=== PATIENT | female | born 1965 | race Two or more races ===

== ENCOUNTER 2016-12-07 07:35 | Day surgery (SDC) | payer OTHER ==
[2016-11-22 16:51] VITALS: BMI 31.1
[2016-12-07] MEDS ORDERED: PROPOFOL 20 ML ONE (08:43)
[2016-12-07] MEDS ORDERED: MIDAZOLAM HCL 2 MG/2 ML SINGLE DOSE VIAL ONE (08:44)
[2016-12-07] MEDS ORDERED: SODIUM CHLORIDE 0.9% P/F 10 ML VIAL IJ ONE (09:33)
[2016-12-07] MEDS ORDERED: ceFAZolin SODIUM 1 GM VIAL IVPB ONE (09:40)
[2016-12-07] MEDS ORDERED: ONABOTULINUMTOXINA 200 UNIT/VIAL VIAL IM ONE (09:50)
[2016-12-07] MEDS ORDERED: BOTULINUM TOXIN A 100 UNITS VIAL NR ONE (09:50)
[2016-12-07] MEDS ORDERED: oxyCODONE HCL 5 MG TABLET PO PRN (10:08)
[2016-12-07] MEDS ORDERED: ONDANSETRON 4 MG/2 ML VIAL IVPUSH PRN (10:08)
[2016-12-07] MEDS ORDERED: KETOROLAC TROMETHAMINE 30 MG/1 ML VIAL IVPUSH ONE (10:08)
--- NOTE | 2016-12-07 10:09 | OP ---
Operative Note - Note: Findings: pt withoab/tejas under ga pt prepped and draped in usual manner ext vag mucosa reveled moist mucosa and grade 2 hydrocele cysto reveleaded sq metaplasia of trigone no lesion no calculi seen botox 100 u vial/20 cc ns was diluted and then with 18.5 g 14 inc needle a cm above trigoner from right toleft 4 rows of 1 cc injected and then from right to left a cm abobve another 5 rows were inj with 1 cc and repeat until a tota;l of 20 inj given briceno removed, pt to recovery stable condition may d/c when alert
--- NOTE | 2016-12-07 10:10 | PN ---
Progress Note (short form) - Note Progress Note: pt post op stable may d/c when alert rx given for antibacterial as well as pain control pt to follow up in office w/i in a week oob inc justin d/c when alert
[2016-12-07] MEDS ORDERED: LACTATED RINGERS SOLUTION 1,000 ML IV SCH (10:15)
[2016-12-07 10:41] VITALS: TEMP 98
[2016-12-07 12:57] VITALS: BP 113/49; PULSE 84
--- NOTE | 2016-12-07 18:56 | HP ---
DATE OF ADMISSION: 12/07/2016 HISTORY OF PRESENT ILLNESS: The patient is a 51-year-old female with a history of severe overactive bladder with no improvement on multiple anticholinergics as well as alpha-3 receptor agonists. The patient also had no help with Kegel exercises as well as biofeedback. She also has some stress urinary incontinence. She states she wakes 8 to 9 times at night, uses 4-6 pads a day. PAST MEDICAL HISTORY: The patient does have dyslipidemia for which she takes Lipitor. PAST SURGICAL HISTORY: She has undergone a hysterectomy, and appendectomy and a cholecystectomy. MOBILE PARAMEDICAL EXAMINER: She is G-3, P-3, all via C section. SOCIAL HISTORY: She denies any ethanolism or time of admission use. ALLERGIES: She is allergic to LEVAQUIN. PHYSICAL EXAMINATION GENERAL: A well-developed adult female. NECK: Supple and nontender. No JVD was noted. No nodes were palpable. CHEST: Clear to auscultation and percussion. ABDOMEN: Globus and nontender. There was no CVA tenderness. No masses were palpated. No was noted. No suprapubic tenderness was noted. PELVIC: Examination revealed a grade 2 cystocele with a positive Dharmesh test. Meatus is adequate. LABORATORY DATA: BUN 12, creatinine 0.88. She had an overactive bladder found on urodynamic evaluation. The patient was given all options of conservative medical care but states that nothing has helped. She is willing to try the intravesical Botox injections. This was explained fully to the patient and she agrees. IMPRESSION: Overactive bladder unresponsive to medications. PLAN: Cystourethroscopy with Botox injections. Rk [id number] cc: Maura Simons MD
--- NOTE | 2016-12-08 11:22 | OP ---
DATE OF OPERATION: 12/07/2016 PREOPERATIVE DIAGNOSIS: Overactive bladder, external sphincter deficiency. POSTOPERATIVE DIAGNOSIS: Overactive bladder, external sphincter deficiency. OPERATIVE PROCEDURE: Cystourethroscopy and intravesical injection of Botox solution. DESCRIPTION OF PROCEDURE: Under general anesthesia, the patient is prepped and draped in the usual sterile manner. She was placed in the dorsal lithotomy position. Inspection of the external genitalia revealed a grade 2 cystocele. Vaginal mucosa was somewhat atrophic. Meatus appeared to be adequate. A 30-degree continuous flow scope was introduced under direct vision. Bladder was entered. Urine was collected for cytology and culture and sensitivity. Inspection of the bladder revealed squamous metaplasia of the trigone. Ureteral orifices were within normal limits with efflux of clear urine bilaterally. Dome and lateral leal were normal. No lesions or calculi were seen. Using the needle, an 18.5-gauge and a 14.6-inch lens, Botox solution 100 units was mixed with 20 mL of normal saline. A row of five 1-mL injections was commenced above the interureteric ridge. This was carried across from the right side of the bladder to the left. A second row was performed 2 cm above that, a third row 2 cm above that, and a fourth row 2 cm above that. In total, the patient received 20 injections of the solution of 100 units of Botox and 20 mL of normal saline. No active bleeding was noted. Again, ureteral orifices revealed efflux of clear urine. The bladder was emptied. The scope was removed. The patient tolerated the procedure well. She returned to the recovery room in good condition. Rk [id number]
--- NOTE | 2016-12-10 15:47 | PATH ---
Cytology Non-Gynecological Report Patient Name: SERAFIN CID [facility]. Rec. #: [id number] /Age/Gender: 1965 (Age: 51) / F Account: [id number] Location: [facility] SURGICAL Taken: 12/07/2016 Received: 12/07/2016 Reported: 12/10/2016 Physicians: Gómez Flores M.D. Specimen(s) Received URINE VOIDED Clinical History Not given Final Diagnosis URINE FOR CYTOLOGY: SATISFACTORY FOR EVALUATION. CLUSTERS OF REACTIVE APPEARING UROTHELIAL CELLS PRESENT. REACTIVE SQUAMOUS CELLS. Comment: Clusters of urothelial cells may be seen as a result of inflammation, instrumentation, stones, or low-grade urothelial carcinoma. The clusters appear to be comprised of reactive looking cells. Clinical and cystoscopic correlations are suggested. Electronically Signed Barrington Weeks M.D. Gross Description Received is 20cc of yellow fluid fresh. One cytofunnel slide and one cell block are made.
== END 2016-12-07 12:57 | disposition home or self-care (01) ==
LOC: JASU-SURG 07:35
PROVIDERS: ATTEND Urology
PROC: 3E0K8GC Introduction of Other Therapeutic Substance into Genitourinary Tract, Via Natural or Artificial Opening Endoscopic (ICD-10-PCS; principal; 2016-12-07 09:00)
DX: N32.81 Overactive bladder (principal); E78.5 Hyperlipidemia, unspecified
CPT/HCPCS: 52287; J0585; 87086; 88108; 88305-TC; 94760

== ENCOUNTER 2017-05-10 03:04 | Emergency (ER) | payer OTHER ==
--- NOTE | 2017-05-10 03:15 | PDOC ---
History of Present Illness - General Stated Complaint: URINARY PROBLEM Time Seen by Provider: 05/10/17 03:14 - History of Present Illness Initial Comments: 05/10/17 04:50 52 y/o female with PMH of cystocele, who presents to the emergency department today complaining of urinary frequency. Patient states that her symptoms started 3 days ago. She states that she is going to the bathroom between 10 and 20 times a day. She has small amounts of output every time she uses the bathroom. Admits to dysuria and urgency. Denies hematuria. Admits to some generalized abdominal pain. Denies fevers, chills, back pain, chest pain, shortness of breath, nausea, vomiting and diarrhea. Past History - Travel Traveled outside of the country in the last 30 days: No Close contact w/someone who was outside of country & ill: No - Past Medical History Allergies/Adverse Reactions: Allergies Allergy/AdvReac Type Severity Reaction Status Date / Time azithromycin [From Zithromax] Allergy Severe Verified 05/10/17 03:55 levofloxacin [From Levaquin] Allergy Severe Verified 05/10/17 03:55 Home Medications: Ambulatory Orders Cephalexin [Keflex] 500 mg PO TID #0 capsule 12/07/16 Oxycodone HCl/Acetaminophen [Percocet 5-325 mg Tablet] 1 tab PO Q4H #20 tablet MDD 6 12/07/16 Sulfamethoxazole/Trimethoprim [Bactrim Ds -] 1 tab PO BID #13 tablet 05/10/17 Anemia: Yes (H/O) Asthma: No Cancer: No Cardiac Disorders: No CVA: No COPD: No CHF: No Dementia: No Diabetes: No GI Disorders: Yes (GERD) Disorders: No HTN: No Hypercholesterolemia: Yes Liver Disease: No (HEPATIC CYST, PANCREATIC CYST) Seizures: No Thyroid Disease: No - Surgical History Abdominal Surgery: Yes Appendectomy: Yes Cardiac Surgery: No Cholecystectomy: Yes Lung Surgery: No Neurologic Surgery: No Orthopedic Surgery: No - Family Disease History Family Disease History: Other: Father (CVA at 60) - Immunization History Immunization Up to Date: Yes - Psycho/Social/Smoking Cessation Hx Anxiety: No Suicidal Ideation: No Smoking History: Never smoked Have you smoked in the past 12 months: No Number of Cigarettes Smoked Daily: 0 Cigars Per Day: 0 Hx Alcohol Use: No Drug/Substance Use Hx: No Substance Use Type: None Hx Substance Use Treatment: No Review of Systems - Review of Systems Able to Perform ROS?: Yes Comments:: 05/10/17 06:52 CONSTITUTIONAL: Absent: fever, chills, diaphoresis, generalized weakness, malaise, loss of appetite HEENT: Absent: rhinorrhea, nasal congestion, throat pain, throat swelling, difficulty swallowing, mouth swelling, ear pain, eye pain, visual Changes CARDIOVASCULAR: Absent: chest pain, loss of consciousness, palpitations, irregular heart rate, peripheral edema RESPIRATORY: Absent: cough, shortness of breath, dyspnea with exertion, orthopnea, wheezing, stridor, hemoptysis GASTROINTESTINAL: Absent: abdominal pain, abdominal distension, nausea, vomiting, diarrhea, constipation, melena, hematochezia GENITOURINARY: Present: dysuria, frequency, urgency, Absent:hesitancy, hematuria, flank pain, genital pain MUSCULOSKELETAL: Absent: myalgia, arthralgia, joint swelling SKIN: Absent: rash, itching, pallor HEMATOLOGIC/IMMUNOLOGIC: Absent: easy bleeding, easy bruising, lymphadenopathy, frequent infections ENDOCRINE: Absent: unexplained weight gain, unexplained weight loss, heat intolerance, cold intolerance NEUROLOGIC: Absent: headache, focal weakness or paresthesias, dizziness, unsteady gait, seizure, mental status changes, bladder or bowel incontinence PSYCHIATRIC: Absent: anxiety, depression, suicidal or homicidal ideation, hallucinations. Is the patient limited Italian proficient: No *Physical Exam - Physical Exam Comments: 05/10/17 04:52 GENERAL: Well developed, well nourished. Awake and alert. No acute distress. HEENT: Normocephalic, atraumatic. PERRLA, EOMI. No conjunctival pallor. Sclera are non- icteric. Moist mucous membranes. Oropharynx is clear. NECK: Supple. Full ROM. No JVD. Carotid pulses 2+ and symmetric, without bruits. No thyromegaly. No lymphadenopathy. CARDIOVASCULAR: Regular rate and rhythm. No murmurs, rubs, or gallops. Distal pulses are 2+ and symmetric. PULMONARY: No evidence of respiratory distress. Lungs clear to auscultation bilaterally. No wheezing, rales or rhonchi. ABDOMINAL: Mild diffuse tenderness, worse over bladder. Soft. Non-distended. No rebound or guarding. No organomegaly. Normoactive bowel sounds. MUSCULOSKELETAL Normal range of motion at all joints. No bony deformities or tenderness. No CVA tenderness. EXTREMITIES: No cyanosis. No clubbing. No edema. No calf tenderness. SKIN: Warm and dry. Normal capillary refill. No rashes. No jaundice. NEUROLOGICAL: Alert, awake, appropriate. Cranial nerves 2-12 intact. No deficits to light touch and temperature in face, upper extremities and lower extremities. No motor deficits in the in face, upper extremities and lower extremities. Normoreflexic in the upper and lower extremities. Normal speech. Toes are down- going bilaterally. Gait is normal without ataxia. PSYCHIATRIC: Cooperative. Good eye contact. Appropriate mood and affect. ED Treatment Course - LABORATORY CBC & Chemistry Diagram: 05/10/17 04:00 05/10/17 04:00 Medical Decision Making - Medical Decision Making 05/10/17 04:53 Past medical history of cystocele, who presents to the emergency department today complaining of urinary frequency. Based on signs and symptoms patient most likely has a UTI. There is no flank pain and vital signs are stable, patient is afebrile. 1.UA, UC, CBC, CMP 2.ibuprofen 3.reevaluate 05/10/17 05:01 UA positive for Leuks, protein, over 300 WBC's. Will treat for UTI at this time. First dose bactum DS now. Prescription sent to pharmacy. Patient to f/u with her PCP this week. Pt. understands all discharge instructions and all questions were answered at this time. *DC/Admit/Observation/Transfer Diagnosis at time of Disposition: UTI (urinary tract infection) Qualifiers: Urinary tract infection type: acute cystitis Hematuria presence: without hematuria Qualified Code(s): N30.00 - Acute cystitis without hematuria - Discharge Dispostion Disposition: HOME Condition at time of disposition: Improved Admit: No - Prescriptions Prescriptions: Sulfamethoxazole/Trimethoprim [Bactrim Ds -] 1 tab PO BID #13 tablet - Referrals Referrals: Oscar Mack MD [Primary Care Provider] - - Patient Instructions Printed Discharge Instructions: DI for Urinary Tract Infection (UTI) Additional Instructions: You have a urinary tract infection. You were prescribed antibiotics. Take the full prescription even if you feel better. Drink plenty of fluids as this will help to flush out the infection. You may take Tylenol or Motrin as needed for pain. Follow up with your primary care doctor later today. Return to the ED if you have worsening pain, fevers, chills, nausea, back pain, or any changes in your symptoms. Usted tiene jay infeccin del tracto urinario. Le recetaron antibiticos. [place] la receta completa incluso si se siente mejor. Domi muchos lquidos ya que esto ayudar a eliminar la infeccin. Usted puede umm Tylenol o Motrin segn sea necesario para el dolor. Seguir con loo mdico de atencin primaria ms brittney gould. Regrese a la [place] si tiene empeoramiento de dolor, fiebre, escalofros, nuseas, dolor de espalda o cualquier cambio en brigette sntomas. Print Language: JAMAICAN
[2017-05-10 03:48] VITALS: BP 114/62; PULSE 86; TEMP 98.3; BMI 31.1
[2017-05-10 04:09] LABS: URINE APPEARANCE SLCLOUDY; URINE BILIRUBIN NEGATIVE (NEGATIVE); URINE BLOOD 2+ (NEGATIVE); URINE COLOR STRAW; URINE GLUCOSE (UA) NEGATIVE (NEGATIVE); URINE KETONE NEGATIVE (NEGATIVE); URINE NITRITE NEGATIVE (NEGATIVE); URINE PROTEIN NEGATIVE (NEGATIVE); URINE UROBILINOGEN NEGATIVE mg/dL (0.2-1.0)
[2017-05-10 04:11] LABS: BASOPHIL 0.5 % (0-2.0); EOSINOPHIL 0.7 % (0-4.5); MCH 30.2 pg (25.7-33.7); MCHC 34.1 g/dl (32.0-36.0); MEAN CELL VOLUME 88.5 fl (80-96); NEUTROPHILS 72.2 % (42.8-82.8); PLATELET COUNT 215 K/MM3 (134-434); RDW 13.1 % (11.6-15.6); WHITE BLOOD COUNT 8.6 K/mm3 (4.0-10.0)
[2017-05-10] MEDS ORDERED: IBUPROFEN 600 MG TABLET (FP) PO ONE ×2 (04:11→04:31)
[2017-05-10 04:13] LABS: URINE LEUK ESTERASE 3+ (NEGATIVE)
[2017-05-10 04:15] LABS: URINE BACTERIA RARE /hpf (NONE SEEN); URINE MUCUS RARE; URINE RBC 2 /hpf (0-3); URINE WBC 318 /hpf (3-5)
[2017-05-10 04:49] LABS: ALBUMIN 3.8 g/dl (3.4-5.0); ANION GAP 11 (8-16); BILIRUBIN,TOTAL 0.5 mg/dL (0.2-1.0); CALCIUM 8.8 mg/dL (8.5-10.1); CO2 27 mmol/L (21-32); CREATININE 0.8 mg/dL (0.55-1.02); GLUCOSE,RANDOM 104 mg/dL (74-106); SGOT/AST 27 U/L (15-37); SGPT/ALT 47 U/L (12-78); TOT PROT 6.9 g/dl (6.4-8.2)
[2017-05-10 04:50] LABS: ALK PHOS 108 U/L (45-117)
--- NOTE | 2017-05-10 04:52 | PDOC ---
*Physical Exam - Vital Signs Last Vital Signs Temp Pulse Resp BP Pulse Ox 98.3 F 86 20 114/62 98 05/10/17 03:46 05/10/17 03:46 05/10/17 03:46 05/10/17 03:46 05/10/17 03:46 ED Treatment Course - LABORATORY CBC & Chemistry Diagram: 05/10/17 04:00 05/10/17 04:00 - ADDITIONAL ORDERS Additional order review: Laboratory Results 05/10/17 05/10/17 04:00 03:55 Sodium 141 Potassium 3.9 Chloride 103 Carbon Dioxide 27 Anion Gap 11 BUN 11 Creatinine 0.8 Creat Clearance w eGFR > 60 Random Glucose 104 Calcium 8.8 Total Bilirubin 0.5 AST 27 D ALT 47 D Alkaline Phosphatase 108 D Total Protein 6.9 Albumin 3.8 Urine Color Straw Urine Appearance Slcloudy Urine pH 6.0 Urine Protein Negative Urine Glucose (UA) Negative Urine Ketones Negative Urine Blood 2+ H Urine Nitrite Negative Urine Bilirubin Negative Urine Urobilinogen Negative Ur Leukocyte Esterase 3+ H Urine RBC 2 Urine WBC 318 Ur Epithelial Cells Rare Urine Bacteria Rare Urine Mucus Rare 05/10/17 04:00 RBC 4.50 MCV 88.5 MCHC 34.1 RDW 13.1 MPV 9.0 Neutrophils % 72.2 Lymphocytes % 21.9 Monocytes % 4.7 Eosinophils % 0.7 Basophils % 0.5 - Medications Given in the ED: ED Medications Discontinued Medications Generic Name Dose Route Start Last Admin Trade Name Freq PRN Reason Stop Dose Admin Ibuprofen 600 mg 05/10/17 04:11 05/10/17 04:28 Motrin - PO 05/10/17 04:12 600 mg ONCE ONE Administration Medical Decision Making - Medical Decision Making 05/10/17 04:52 agree with care from THONY Tsang *DC/Admit/Observation/Transfer Diagnosis at time of Disposition: UTI (urinary tract infection) Qualifiers: Urinary tract infection type: acute cystitis Hematuria presence: without hematuria Qualified Code(s): N30.00 - Acute cystitis without hematuria - Discharge Dispostion Disposition: HOME - Referrals Referrals: Oscar Mack MD [Primary Care Provider] - - Patient Instructions - Post Discharge Activity
[2017-05-10] MEDS ORDERED: SULFAMETHOXAZOLE/TRIMETHOPRIM 800MG/160MG D.S. TABLET PO ONE (05:18)
[2017-05-10] MEDS ORDERED: SULFAMETHOXAZOLE/TRIMETHOPRIM 800MG/160MG D.S. TABLET ONE (05:29)
== END 2017-05-10 05:31 | disposition home or self-care (01) ==
LOC: JER 03:04
DX: N30.00 Acute cystitis without hematuria (principal)
CPT/HCPCS: 36415; 80053; 81003; 81015; 85025; 87086; 87186; 99281-25

== ENCOUNTER 2017-06-05 13:09 | Day surgery (SDC) | payer OTHER ==
[2017-06-04 09:42] VITALS: BMI 31.1
--- NOTE | 2017-06-05 09:49 | OP ---
Operative Note - Note: Operative Date: 06/05/17 Pre-Operative Diagnosis: stress urinary incontincence Operation: transvag urethropexy and cystocele repair Post-Operative Diagnosis: Same as Pre-op Surgeon: Gómez Flores Drains & Tubes with Location: briceno to lb Operative Report Dictated: Yes
--- NOTE | 2017-06-05 09:52 | PN ---
Progress Note (short form) - Note Progress Note: 51 yo f with tejas, mix incont s/p botox 11/2016 with refr tejas with greater than 3 pads per day c/s 3 for tvu and cystoc repair to go home on keflex 500 qid and percocet 5-325 q 4 prn f/u in am to d/c vag packing briceno to lb pt to f/u in office in am
[~2017-06-05 13:09] MED LIST: ACETAMINOPHEN 325 MG TABLET (FP) PO PRN; [UNRECOGNIZED DRUG - OTHER] IJ SCH; oxyCODONE HCL 5 MG TABLET PO PRN
[2017-06-05] MEDS ORDERED: DEXTROSE 5%-0.45% SALINE 1,000 ML IV SCH (14:45)
[2017-06-05] MEDS ORDERED: MIDAZOLAM HCL 2 MG/2 ML SINGLE DOSE VIAL ONE (17:05)
[2017-06-05] MEDS ORDERED: LIDOCAINE HCL/PF 2% SDV 5ML VIAL ONE (17:16)
[2017-06-05] MEDS ORDERED: LIDOCAINE HCL 0.5% EPINEPHRINE 1:200,000 50 ML VIAL IJ ONE (17:20)
[2017-06-05] MEDS ORDERED: DESFLURANE GAS 240 ML BOTTLE IH ONE (17:26)
[2017-06-05] MEDS ORDERED: ceFAZolin SODIUM 1 GM VIAL IVPB ONE (17:29)
[2017-06-05] MEDS ORDERED: DEXAMETHASONE SOD PHOSPHATE 4 MG/1 ML VIAL ONE (17:34)
[2017-06-05] MEDS ORDERED: BACITRACIN 15 GM TUBE TOPICAL OINTMENT ONE (18:12)
[2017-06-05] MEDS ORDERED: PROMETHAZINE HCL 25 MG/1 ML VIAL IVPUSH PRN (18:47)
[2017-06-05] MEDS ORDERED: ONDANSETRON 4 MG/2 ML VIAL IVPUSH PRN (18:47)
[2017-06-05] MEDS ORDERED: LACTATED RINGERS SOLUTION 1,000 ML IV SCH (19:00)
[2017-06-05] MEDS: ACETAMINOPHEN 1000 MG/100 ML VIAL (NON FORMULARY) IVPB ONE (19:15)
[2017-06-05] MEDS ORDERED: ACETAMINOPHEN INJECTION 100 ML IVPB ONE (19:17)
[2017-06-05] MEDS ORDERED: HYDROmorphone HCL CARPU-JECT 2 MG/1 ML DISP.SYRIN IVPB PRN (19:45)
[2017-06-05] MEDS ORDERED: HYDROmorphone HCL CARPU-JECT 2 MG/1 ML DISP.SYRIN ONE (20:18)
[2017-06-05] MEDS ORDERED: ATORVASTATIN CA 10 MG TABLET (FP) PO SCH (22:00)
[2017-06-06] MEDS: CEPHALEXIN MONOHYDRATE 500 MG CAPSULE (UD) PO SCH ×3 (00:12→07:37)
[2017-06-06] MEDS: ACETAMINOPHEN 1000 MG/100 ML VIAL (NON FORMULARY) IVPB ONE (07:31)
[2017-06-06 08:03] VITALS: PULSE 62
--- NOTE | 2017-06-06 08:18 | OP ---
DATE OF OPERATION: 06/05/2017 Patient is a 52-year-old female with grade 3 cystocele and stress urinary incontinence secondary to external sphincter hypermobility and insufficiency. PREOPERATIVE DIAGNOSES: Cystocele, stress incontinence. POSTOPERATIVE DIAGNOSES: Cystocele, stress incontinence. OPERATIVE PROCEDURE: Cystocele repair and transobturator taping using Coloplast Altis urethral sling. ANESTHESIA: General. DESCRIPTION OF PROCEDURE: Under the above-stated anesthesia, patient is prepped and draped in the usual sterile manner. She is placed in the dorsal lithotomy position. She was given 1 g of Ancef. Stay sutures were placed on either side of the labia majora. A 16-Estonian Bond was placed in the urethra. The balloon was expanded for 10 mL. A weighted vaginal speculum was placed on the floor of the vagina. Inspection of the vaginal orifice revealed a grade 2-3 cystocele. No other lesions were seen. Therefore, the roof of the vagina was infiltrated with lidocaine anesthesia with epinephrine for hemostatic purposes. A vertical midline incision from the mid-urethra to the vaginal cuff was carried out. Patient is status post total abdominal hysterectomy. Roof of the vagina was then dissected using both blunt and sharp dissection to the lateral borders where the tendinous arches were palpated. Using 2-0 Vicryl suture ligatures, the tendinous arches were approximated using 2-0 Vicryl suture ligatures. The base of the bladder was also plicated using 3-0 Vicryl suture ligatures. Active bleeding was cauterized and suture ligated with 3-0 Vicryl suture ligatures. After the bladder was elevated by approximating the right and left tendinous arch, excess vaginal mucosa was excised with cautery. Using both blunt and sharp dissection, the endopelvic fascia was palpated on the right and left side of the urethrovesical angle. Using the Altis Coloplast sling, the sling was attached to the proper needle, and the needle was anchored inside the rectal and pelvic fascia on the right as well as on the left. The sling was anchored and placed flat below the urethra. No pressure was applied to the urethra. The anchoring stitch was then excised. The Bond catheter was removed, and a cystoscopy was performed. This revealed a normal bladder neck. No lesions were noted in the bladder. Ureteral orifices were within normal limits with efflux of clear urine. No foreign bodies were seen in the bladder. Therefore, the bladder was emptied. Scope was removed. The Bond was reinserted. The roof of the vagina was closed with running 3-0 Vicryl suture ligatures. No active bleeding was noted. The wound was irrigated and then packed with 1-inch Iodoform-soaked vaginal packing. The Bond was connected to a leg bag. The patient tolerated the procedure well. She returned to the recovery room in good condition. Rk [id number]
[2017-06-06 10:58] VITALS: BP 108/54; TEMP 97.6
--- NOTE | 2017-06-07 11:23 | PATH ---
Surgical Pathology Report Patient Name: SERAFIN CID [facility]. Rec. #: [id number] /Age/Gender: 1965 (Age: 52) / F Account: [id number] Location: AMBULATORY SURG Taken: 06/05/2017 Received: 06/06/2017 Reported: 06/07/2017 Physicians: Gómez Flores M.D. Specimen(s) Received VAGINAL MUCOSA Clinical History Cystocele/stress urinary incontinence Final Diagnosis VAGINAL MUCOSA, EXCISION: UNREMARKABLE SQUAMOUS MUCOSA. Electronically Signed Jose Alberto Isabel M.D. Gross Description Received in formalin labelled "vaginal mucosa" is a 4.2 x 1.0 x 0.6 cm portion of wrinkled horn mucosa, along with additional hemorrhagic and membranous tissue. No distinct mass is identified. Larry Operator sections are submitted in one cassette. [facility]/06/06/2017 [facility]/06/06/2017
== END 2017-06-06 10:00 | disposition home or self-care (01) ==
LOC: JASUSAT 13:09 → JASU-SURG 13:09 → J8W 20:39 → JASUSAT 06-06 10:00
PROVIDERS: ATTEND Urology
PROC: 0JQC0ZZ Repair Pelvic Region Subcutaneous Tissue and Fascia, Open Approach (ICD-10-PCS; principal; 2017-06-05 15:00)
DX: N81.10 Cystocele, unspecified (principal); N39.3 Stress incontinence (female) (male)
CPT/HCPCS: 88302-TC; 94760

== ENCOUNTER 2017-06-11 20:26 | Emergency (ER) | payer OTHER ==
[2017-06-11 20:32] VITALS: BP 144/55; PULSE 86; TEMP 98.3; BMI 31.1
--- NOTE | 2017-06-11 20:56 | PDOC ---
History of Present Illness - General History Source: Patient Exam Limitations: No Limitations - History of Present Illness Initial Comments: 06/11/17 21:35 The patient is a 52 year old female with significant past medical history of hyperlipidemia and s/p transvag urethropexy and cystocele repair (06/05/17) who presents to the ED for urinary retention, dysuria, urgency, and frequency few hours prior to arrival. Patient reports on 06/05 she had a transvag urethropexy and cystocele repair. During her admission, she had a briceno catheter placed, which was removed yesterday noon. States since then she has been able to urinate with major difficulty. However, several hours prior to arrival, she has attempted to urinate and was only able to urinate in small amounts with associated dysuria, urgency and frequency. Denies hematuria. Denies vaginal bleeding or discharge. She also has complaints of sharp pain and pressure to the suprapubic region and during presentation, her pain became so bad, patient became nauseous, but no vomiting. Denies diarrhea. The patient denies fever, chills, cough, SOB, chest pain, and palpitations. Allergies: azithromycin, levofloxacin Social History: No alcohol, tobacco, or drug use reported. Past Surgical History: s/p transvag urethropexy and cystocele repair (06/05/17), appendectomy, cholecystectomy, , hysterectomy PCP: Dr. Joy Simons <Madhavi Willams - Last Filed: 06/11/17 21:35> - General History Source: Patient <Felton Jeter - Last Filed: 06/11/17 22:28> - General Chief Complaint: Urinary Problem Stated Complaint: URINARY PROBLEM Time Seen by Provider: 06/11/17 20:54 Past History <Madhavi Willams - Last Filed: 06/11/17 21:35> - Past Medical History Anemia: Yes (H/O) Asthma: No Cancer: No Cardiac Disorders: No CVA: No COPD: No CHF: No Dementia: No Diabetes: No GI Disorders: Yes (GERD) Disorders: No HTN: No Hypercholesterolemia: Yes Liver Disease: No (HEPATIC CYST, PANCREATIC CYST) Seizures: No Thyroid Disease: No - Surgical History Abdominal Surgery: Yes Appendectomy: Yes Cardiac Surgery: No Cholecystectomy: Yes Lung Surgery: No Neurologic Surgery: No Orthopedic Surgery: No - Family Disease History Family Disease History: Other: Father (CVA at 60) - Immunization History Immunization Up to Date: Yes - Psycho/Social/Smoking Cessation Hx Anxiety: No Suicidal Ideation: No Smoking History: Never smoked Have you smoked in the past 12 months: No Number of Cigarettes Smoked Daily: 0 Cigars Per Day: 0 Hx Alcohol Use: No Drug/Substance Use Hx: No Substance Use Type: None Hx Substance Use Treatment: No <Felton Jeter - Last Filed: 06/11/17 22:28> - Past Medical History Allergies/Adverse Reactions: Allergies Allergy/AdvReac Type Severity Reaction Status Date / Time azithromycin [From Zithromax] Allergy Severe Verified 06/11/17 20:32 levofloxacin [From Levaquin] Allergy Severe Verified 06/11/17 20:32 Home Medications: Ambulatory Orders Cyanocobalamin Vit B-12 Inj. [Redisol] 1,000 mcg IJ ASDIR 06/04/17 Pravastatin Sodium 10 mg PO DAILY 06/04/17 Review of Systems - Review of Systems Able to Perform ROS?: Yes Comments:: 06/11/17 21:36 CONSTITUTIONAL: Absent: fever, no chills, no fatigue EYES: Absent: visual changes ENT: Absent: ear pain, no sore throat CARDIOVASCULAR: Absent: chest pain, no palpitations RESPIRATORY: Absent: cough, no SOB GI: +suprapubic pain, nausea Absent: no vomiting, no constipation, no diarrhea GENITOURINARY: +dysuria, frequency, urgency, urinary retention Absent: hematuria MUSCULOSKELETAL: Absent: back pain, no arthralgia, no myalgia SKIN: Absent: rash NEURO: Absent: headache <Madhavi Willams - Last Filed: 06/11/17 21:35> *Physical Exam - Vital Signs Last Vital Signs Temp Pulse Resp BP Pulse Ox 98.3 F 86 18 144/55 99 06/11/17 20:29 06/11/17 20:29 06/11/17 20:29 06/11/17 20:29 06/11/17 20:29 - Physical Exam Comments: 06/11/17 21:36 GENERAL: Well-appearing, well-nourished. No apparent distress. HEENT: Normocephalic, atraumatic. PERRL, EOM intact. CARDIOVASCULAR: Normal S1, S2. Regular rate and rhythm. PULMONARY: Clear to auscultation bilaterally. ABDOMEN: Soft, non-distended, suprapubic tenderness. No rebound or guarding. EXTREMITIES: Normal ROM in all four extremities. No gross deformities. SKIN: Warm, dry. No rash NEUROLOGICAL: No focal neurological deficits. <Madhavi Willams - Last Filed: 06/11/17 21:35> - Vital Signs Last Vital Signs Temp Pulse Resp BP Pulse Ox 98.3 F 86 18 144/55 99 06/11/17 20:29 06/11/17 20:29 06/11/17 20:29 06/11/17 20:29 06/11/17 20:29 <Felton Jeter - Last Filed: 06/11/17 22:28> ED Treatment Course - ADDITIONAL ORDERS Additional order review: Laboratory Results 06/11/17 21:19 Urine Color Ltyellow Urine Appearance Clear Urine pH 5.0 Urine Protein Negative Urine Glucose (UA) Negative Urine Ketones Negative Urine Blood Negative Urine Nitrite Negative Urine Bilirubin Negative Urine Urobilinogen Negative Ur Leukocyte Esterase Negative <Madhavi Willams - Last Filed: 06/11/17 21:35> Medical Decision Making - Medical Decision Making 06/11/17 21:21 Dr. Jeter: The scribe's documentation has been prepared under my direction and personally reviewed by me in its entirery. I confirm that the note above accurately reflects all work, treatment, procedures, and medical decision making performed by me. Briceno was inserted and 1100cc of clear yellow urine expressed. <Felton Jeter - Last Filed: 06/11/17 22:28> *DC/Admit/Observation/Transfer - Attestations Scribe Attestion: 06/11/17 21:36 Documentation prepared by Madhavi Willams, acting as medical staff coordinator for Felton Jeter DO. <Madhavi Willams - Last Filed: 06/11/17 21:35> - Discharge Dispostion Admit: No <Felton Jeter - Last Filed: 06/11/17 22:28> Diagnosis at time of Disposition: Urinary retention - Discharge Dispostion Disposition: HOME Condition at time of disposition: Stable - Patient Instructions Printed Discharge Instructions: DI for Urinary Retention in Women Additional Instructions: Please follow up with your doctor to have catheter removed.
[2017-06-11 21:28] LABS: URINE APPEARANCE CLEAR; URINE BILIRUBIN NEGATIVE (NEGATIVE); URINE BLOOD NEGATIVE (NEGATIVE); URINE COLOR LTYELLOW; URINE GLUCOSE (UA) NEGATIVE (NEGATIVE); URINE KETONE NEGATIVE (NEGATIVE); URINE LEUK ESTERASE NEGATIVE (NEGATIVE); URINE NITRITE NEGATIVE (NEGATIVE); URINE PROTEIN NEGATIVE (NEGATIVE); URINE UROBILINOGEN NEGATIVE mg/dL (0.2-1.0)
== END 2017-06-11 23:02 | disposition home or self-care (01) ==
LOC: JER 20:26
PROC: 0T9B70Z Drainage of Bladder with Drainage Device, Via Natural or Artificial Opening (ICD-10-PCS; principal; 2017-06-11)
DX: R33.8 Other retention of urine (principal); Z98.890 Other specified postprocedural states
CPT/HCPCS: 81003; 87086; 99282-25

== ENCOUNTER 2018-02-24 00:15 | Emergency (ER) | payer OTHER ==
[2018-02-24 00:32] VITALS: BP 146/66; PULSE 81; TEMP 98.1; BMI 30.7
[2018-02-24] MEDS ORDERED: SODIUM CHLORIDE 0.9% 500 ML INFUS.BAG IV ONE (00:49)
[2018-02-24] MEDS ORDERED: methylPREDNISolone NA SUCC 125 MG/2 ML VIAL IVPB ONE (00:49)
--- NOTE | 2018-02-24 00:49 | PDOC ---
History of Present Illness - General History Source: Patient, Significant Other, Old Records Exam Limitations: No Limitations - History of Present Illness Initial Comments: 02/24/18 01:25 Patient is a 52 year old female with a significant past medical history of recurrent migraines, Anemia (due to fibroid uterus), hyperlipidemia and s/p transvag urethropexy and cystocele repair (06/05/17), who presents to the ED with complaints of general body rash that began earlier this week. Patient reports experiencing gradual onset of full body rash that she states began to increase in intensity over time, prompting her to come into the ED for further evaluation. She reports taking Contrave, Reglan and Pepcid medications but is unsure if she has developed any allergies to them. Patient reports coloring her hair last week but states its the coloring she has used frequently in the past. She reports experiencing associated symptoms of pressured chest pain that began 3 days ago as well as a sensation in her throat. Denies chest pain, sob. Denies nausea, vomiting. Denies contact with sick individuals, out of state travelling. Denies change in food, change in appetite. Denies constipation, diarrhea, dysuria, hematuria.Denies any other symptoms. Allergies: azithromycin, levofloxacin Social history: Lives with . No smoking. No alcohol. No illicit drugs. Surgical history: Cholecystectomy (Jul 2015 after biliary pancreatitis), C- Section, Hysterectomy PMD: Dr. Mack <Ruddy Tobias - Last Filed: 02/24/18 01:24> <Eunice Garcia - Last Filed: 02/24/18 03:58> - General Chief Complaint: Rash Stated Complaint: RASH Time Seen by Provider: 02/24/18 00:25 Past History <Ruddy Tobias - Last Filed: 02/24/18 01:24> - Past Medical History Anemia: Yes (H/O) Asthma: No Cancer: No Cardiac Disorders: No CVA: No COPD: No CHF: No Dementia: No Diabetes: No GI Disorders: Yes (GERD) Disorders: No HTN: No Hypercholesterolemia: Yes Liver Disease: No (HEPATIC CYST, PANCREATIC CYST) Seizures: No Thyroid Disease: No - Surgical History Abdominal Surgery: Yes Appendectomy: Yes Cardiac Surgery: No Cholecystectomy: Yes Lung Surgery: No Neurologic Surgery: No Orthopedic Surgery: No - Family Disease History Family Disease History: Other: Father (CVA at 60) - Immunization History Immunization Up to Date: Yes - Suicide/Smoking/Psychosocial Hx Smoking History: Never smoked Have you smoked in the past 12 months: No Number of Cigarettes Smoked Daily: 0 Cigars Per Day: 0 Information on smoking cessation initiated: No Hx Alcohol Use: No Drug/Substance Use Hx: No Substance Use Type: None Hx Substance Use Treatment: No <Eunice Garcia - Last Filed: 02/24/18 03:58> - Past Medical History Allergies/Adverse Reactions: Allergies Allergy/AdvReac Type Severity Reaction Status Date / Time azithromycin [From Zithromax] Allergy Severe Verified 02/24/18 00:30 levofloxacin [From Levaquin] Allergy Severe Verified 02/24/18 00:30 Home Medications: Ambulatory Orders Ranitidine HCl [Zantac] 300 mg PO DAILY #15 tablet 02/24/18 Review of Systems - Review of Systems Able to Perform ROS?: Yes Comments:: 02/24/18 01:25 GENERAL/CONSTITUTIONAL: No fever or chills. No weakness. HEAD, EYES, EARS, NOSE AND THROAT: No change in vision. No ear pain or discharge. No sore throat. CARDIOVASCULAR: No chest pain or shortness of breath. RESPIRATORY: No cough, wheezing, or hemoptysis. GASTROINTESTINAL: No nausea, vomiting, diarrhea or constipation. GENITOURINARY: No dysuria, frequency, or change in urination. MUSCULOSKELETAL: No joint or muscle swelling or pain. No neck or back pain. SKIN: +Full body rash NEUROLOGIC: No headache, vertigo, loss of consciousness, or change in strength/ sensation. ENDOCRINE: No increased thirst. No abnormal weight change. HEMATOLOGIC/LYMPHATIC: No anemia, easy bleeding, or history of blood clots. ALLERGIC/IMMUNOLOGIC: No hives or skin allergy. <Ruddy Tobias - Last Filed: 02/24/18 01:24> *Physical Exam - Vital Signs Last Vital Signs Temp Pulse Resp BP Pulse Ox 98.1 F 81 18 146/66 98 02/24/18 00:31 02/24/18 00:31 02/24/18 00:31 02/24/18 00:31 02/24/18 00:31 - Physical Exam Comments: 02/24/18 01:25 GENERAL: Awake, alert, and fully oriented, in no acute distress HEAD: No signs of trauma EYES: PERRLA, EOMI, sclera anicteric, conjunctiva clear ENT: Auricles normal inspection, hearing grossly normal, nares patent, oropharynx clear without exudates. Moist mucosa NECK: Normal ROM, supple, no lymphadenopathy, JVD, or masses LUNGS: Breath sounds equal, clear to auscultation bilaterally. No wheezes, and no crackles HEART: Regular rate and rhythm, normal S1 and S2, no murmurs, rubs or gallops ABDOMEN: Soft, nontender, normoactive bowel sounds. No guarding, no rebound. No masses EXTREMITIES: Normal range of motion, no edema. No clubbing or cyanosis. No cords, erythema, or tenderness NEUROLOGICAL: Cranial nerves II through XII grossly intact. Normal speech, normal gait SKIN: +Full body hives. Warm, Dry, normal turgor, <Ruddy Tobias - Last Filed: 02/24/18 01:24> - Vital Signs Last Vital Signs Temp Pulse Resp BP Pulse Ox 98.1 F 81 18 146/66 98 02/24/18 00:31 02/24/18 00:31 02/24/18 00:31 02/24/18 00:31 02/24/18 00:31 <Eunice Garcia - Last Filed: 02/24/18 03:58> ED Treatment Course - Medications Given in the ED: ED Medications Discontinued Medications Generic Name Dose Route Start Last Admin Trade Name Freq PRN Reason Stop Dose Admin Diphenhydramine HCl 50 mg 02/24/18 00:49 02/24/18 01:22 Benadryl Injection - IVPB 02/24/18 00:50 50 mg ONCE ONE Administration Methylprednisolone Sodium Succinate 125 mg 02/24/18 00:49 02/24/18 01:22 Solu-Medrol - IVPB 02/24/18 00:50 125 mg ONCE ONE Administration Sodium Chloride 1,000 ml 02/24/18 00:49 02/24/18 01:22 Normal Saline - IV 02/24/18 00:50 1,000 ml ONCE ONE Administration <Ruddy Tobias - Last Filed: 02/24/18 01:24> Medical Decision Making - Medical Decision Making 02/24/18 03:56 Pt comes with hives all over her body ongoing for the entire week and getting progressively worse. Unclear if this is due to foods, weight loss meds, or hair coloring. Pt will stop her meds. She will keep food diary and follow with ENT and allergy. Pt received steroids and benadryl and pepcid and IVF. She had a sticking sensation in her neck. Soft tissue AP/Lat of neck is normal. Home with benadryl and steroids and zantac. Call 911 for worsening breathing. <Eunice Garcia - Last Filed: 02/24/18 03:58> *DC/Admit/Observation/Transfer - Attestations Scribe Attestion: 02/24/18 01:25 Documentation prepared by Ruddy Tobias, acting as medical underwriter for Eunice Garcia MD/DO. <Ruddy Tobias - Last Filed: 02/24/18 01:24> - Discharge Dispostion Decision to Admit order: No <Eunice Garcia - Last Filed: 02/24/18 03:58> Diagnosis at time of Disposition: Hives - Discharge Dispostion Disposition: HOME Condition at time of disposition: Improved - Prescriptions Prescriptions: Ranitidine HCl [Zantac] 300 mg PO DAILY #15 tablet - Referrals Referrals: Oscar Mack MD [Primary Care Provider] - Michael Bar MD [Staff Physician] - - Patient Instructions Printed Discharge Instructions: DI for Hives
[2018-02-24] MEDS ORDERED: methylPREDNISolone NA SUCC 125 MG/2 ML VIAL ONE (00:59)
[2018-02-24] MEDS ORDERED: FAMOTIDINE 20 MG/50 ML IVPB 20 MG/50 ML MG IVPB ONE ×2 (00:59)
== END 2018-02-24 02:40 | disposition home or self-care (01) ==
LOC: JER 00:15
PROC: 3E033GC Introduction of Other Therapeutic Substance into Peripheral Vein, Percutaneous Approach (ICD-10-PCS; principal; 2018-02-24)
PROC: 3E0333Z Introduction of Anti-inflammatory into Peripheral Vein, Percutaneous Approach (ICD-10-PCS; 2018-02-24)
DX: L50.9 Urticaria, unspecified (principal); E78.5 Hyperlipidemia, unspecified; D64.89 Other specified anemias; G43.909 Migraine, unspecified, not intractable, without status migrainosus
CPT/HCPCS: 70360-TC-FY; 96365; 96375; 99282-25

== ENCOUNTER 2018-02-26 22:37 | Emergency (ER) | payer OTHER ==
[2018-02-26 22:43] VITALS: TEMP 98.4; BMI 28.3
--- NOTE | 2018-02-26 22:46 | PDOC ---
History of Present Illness - General Chief Complaint: Pain Stated Complaint: CHEST PAIN Time Seen by Provider: 02/26/18 22:45 History Source: Patient Exam Limitations: Language Barrier - History of Present Illness Initial Comments: 02/26/18 23:26 52-year-old female status post cholecystectomy presents to the ER with atraumatic epigastric pain that radiates to the back which she describes as pressure-like sensation, that started several hours prior to arrival, is intermittent, mild to moderate, associated with nausea but no vomiting/diarrhea/ melena/bright red blood per rectum. Patient reports intermittent chills with sensation of warmth. Patient denies previous history of similar complaints. Patient denies shortness of breath/diaphoresis. Patient endorses that she is scheduled for an upper endoscopy to evaluate for possible bacterial infection of her stomach. REVIEW OF SYSTEMS CONSTITUTIONAL: No fever, no chills, no fatigue EYES: No visual changes ENT: No ear pain, no sore throat CARDIOVASCULAR: No chest pain, no palpitations RESPIRATORY: No cough, no SOB GI: + abdominal pain, + nausea, no vomiting, no constipation, no diarrhea GENITOURINARY: No dysuria, no frequency, no hematuria MUSKULOSKELETAL: No backpain, no joint pain, no myalgias SKIN: No rash NEURO: No headache EXAMINATION CONSTITUTIONAL: Well-appearing; well-nourished; in no apparent distress HEAD: Normocephalic; atraumatic EYES: PERRL; EOM intact ENMT: External appears normal; normal oropharynx NECK: Supple; non-tender; no cervical lymphadenopathy CARD: Normal S1, S2; no murmurs, rubs, or gallops RESP: Normal chest excursion with respiration; breath sounds clear and equal bilaterally; no wheezes, rhonchi, or rales ABD: Soft, non-distended; + mild epigastric tender; no guarding/rebound; no palpable organomegaly, no palpable hernias EXT: Normal ROM in all four extremities; non-tender to palpation; distal pulses intact SKIN: Warm, dry, no rash NEURO: No focal neurological deficiencies. Past History - Past Medical History Allergies/Adverse Reactions: Allergies Allergy/AdvReac Type Severity Reaction Status Date / Time azithromycin [From Zithromax] Allergy Severe Verified 02/26/18 22:59 levofloxacin [From Levaquin] Allergy Severe Verified 02/26/18 22:59 Home Medications: Ambulatory Orders NK [No Known Home Medication] 02/26/18 Anemia: Yes (H/O) Asthma: No Cancer: No Cardiac Disorders: No CVA: No COPD: No CHF: No Dementia: No Diabetes: No GI Disorders: Yes (GERD) Disorders: No HTN: No Hypercholesterolemia: Yes Liver Disease: No (HEPATIC CYST, PANCREATIC CYST) Seizures: No Thyroid Disease: No - Surgical History Abdominal Surgery: Yes Appendectomy: Yes Cardiac Surgery: No Cholecystectomy: Yes Lung Surgery: No Neurologic Surgery: No Orthopedic Surgery: No - Family Disease History Family Disease History: Other: Father (CVA at 60) - Immunization History Immunization Up to Date: Yes - Suicide/Smoking/Psychosocial Hx Smoking History: Never smoked Have you smoked in the past 12 months: No Number of Cigarettes Smoked Daily: 0 Cigars Per Day: 0 Hx Alcohol Use: No Drug/Substance Use Hx: No Substance Use Type: None Hx Substance Use Treatment: No *Physical Exam - Vital Signs Last Vital Signs Temp Pulse Resp BP Pulse Ox 98.4 F 80 18 136/78 96 02/26/18 22:40 02/26/18 22:40 02/26/18 22:40 02/26/18 22:40 02/26/18 22:40 Heart Score/ECG Review - History History: Slightly suspicious - Electrocardiogram EKG: Normal - Age Age: 45-65 - Risk Factors Risk Factors Heart Score: No Hx Hypercholesterolemia, No Hx Hypertension, No Hx Diabetes, No Smoking History, No Positive family hx of cardiac disease, No Hx Obesity Based on the list above the patient has:: 1-2 risk factors - Troponin Troponin: </= normal limit - Score Heart Score - Total: 2 ED Treatment Course - LABORATORY CBC & Chemistry Diagram: 02/26/18 23:05 02/26/18 23:05 Medical Decision Making - Medical Decision Making 02/26/18 23:28 Patient is a 52-year-old female who presents with atraumatic epigastric pain associated with nausea. In the ER, patient is afebrile, nontoxic appearing. Differential diagnoses includes pancreatitis versus gastritis versus ACS versus gallstone pancreatitis due to retained gallstone versus colitis. Will obtain CBC /CMP/lipase/cardiac profile. Will rule out free air under the diaphragm with chest x-ray. We'll administer H2 blockers. Will reassess. 02/27/18 00:25 pt reports improved abd pain. now c/o mild headache. will adminsiter apap. 02/27/18 01:39 Patient is currently asymptomatic, resting comfortably. I do not suspect ACS at this time. Patient's heart score is 2. Will obtain second set of cardiac enzymes and repeat EKG and if negative, will discharge with outpatient follow- up. Will endorse to Dr. ramirez for final disposition. *DC/Admit/Observation/Transfer Diagnosis at time of Disposition: Abdominal pain - Discharge Dispostion Disposition: HOME Condition at time of disposition: Stable - Referrals Referrals: Kenrick Adams MD [Staff Physician] - Oscar Mack MD [Primary Care Provider] - - Patient Instructions Printed Discharge Instructions: DI for Abdominal Pain-Adult Additional Instructions: Please follow up with your doctor as soon as possible if symptoms don't improve. Follow up with the GI doctor you were referred to if pain continues. - Post Discharge Activity
[2018-02-26] MEDS ORDERED: FAMOTIDINE IV 20 MG/12 ML VIAL IVPUSH ONE (23:01)
[2018-02-26] MEDS ORDERED: FAMOTIDINE 20 MG/50 ML IVPB 20 MG/50 ML MG IVPB ONE (23:06)
[2018-02-26 23:29] LABS: BASO % 0.3 % (0-2.0); EOS % 2.2 % (0-4.5); HEMATOCRIT 40.8 % (32.4-45.2); HEMOGLOBIN 14.1 GM/dL (10.7-15.3); MCH 30.9 pg (25.7-33.7); MCHC 34.7 g/dl (32.0-36.0); MEAN CELL VOLUME 89.1 fl (80-96); MEAN PLT VOLUME 9.4 fl (7.5-11.1); MONO % 6.5 % (3.8-10.2); PLATELET COUNT 235 K/MM3 (134-434); RBC 4.58 M/mm3 (3.60-5.2); RDW 13.3 % (11.6-15.6); WHITE BLOOD COUNT 7.2 K/mm3 (4.0-10.0)
[2018-02-26] MEDS ORDERED: SODIUM CHLORIDE 500 ML IV STA (23:29)
[2018-02-26 23:46] LABS: INR 0.92 (0.82-1.09); PROTHROMBIN TIME (PATIENT) 10.4 SEC (9.7-13.0)
[2018-02-27] MEDS ORDERED: ACETAMINOPHEN 325 MG TABLET (FP) PO ONE (00:17)
[2018-02-27 00:19] LABS: ALBUMIN 3.9 g/dl (3.4-5.0); ALK PHOS 98 U/L (45-117); CALCIUM 8.6 mg/dL (8.5-10.1); CO2 30 mmol/L (21-32); CREATININE 0.8 mg/dL (0.55-1.02); GLUCOSE,RANDOM 94 mg/dL (74-106); LIPASE 196 U/L (73-393)
[2018-02-27] MEDS ORDERED: ACETAMINOPHEN 325 MG TABLET (FP) ONE (00:24)
[2018-02-27 00:25] LABS: ANION GAP 6 (8-16); CHLORIDE 104 mmol/L (98-107); SGOT/AST 19 U/L (15-37); SGPT/ALT 28 U/L (12-78); SODIUM 140 mmol/L (136-145)
[2018-02-27 00:39] LABS: BILIRUBIN,TOTAL 0.3 mg/dL (0.2-1.0); BLOOD UREA NITROGEN 13 mg/dL (7-18)
[2018-02-27 02:46] VITALS: BP 93/53; PULSE 66
--- NOTE | 2018-02-27 04:57 | PDOC ---
*Physical Exam - Vital Signs Last Vital Signs Temp Pulse Resp BP Pulse Ox 98.4 F 66 18 93/53 98 02/26/18 22:40 02/27/18 02:46 02/27/18 02:46 02/27/18 02:46 02/27/18 02:46 ED Treatment Course - LABORATORY CBC & Chemistry Diagram: 02/26/18 23:05 02/26/18 23:05 - ADDITIONAL ORDERS Additional order review: Laboratory Results 02/27/18 02/26/18 02/26/18 03:46 23:05 23:00 PT with INR 10.40 INR 0.92 Sodium 140 Potassium 4.0 Chloride 104 Carbon Dioxide 30 Anion Gap 6 L BUN 13 Creatinine 0.8 Creat Clearance w eGFR > 60 Random Glucose 94 Calcium 8.6 Total Bilirubin 0.3 D AST 19 ALT 28 Alkaline Phosphatase 98 Creatine Kinase 57 70 Troponin I < 0.02 < 0.02 Total Protein 7.0 Albumin 3.9 Lipase 196 02/26/18 23:05 RBC 4.58 MCV 89.1 MCHC 34.7 RDW 13.3 MPV 9.4 Neutrophils % 55.0 D Lymphocytes % 36.0 D Monocytes % 6.5 Eosinophils % 2.2 D Basophils % 0.3 - Medications Given in the ED: ED Medications Discontinued Medications Generic Name Dose Route Start Last Admin Trade Name Katie PRN Reason Stop Dose Admin Acetaminophen 650 mg 02/27/18 00:17 02/27/18 00:25 Tylenol - PO 02/27/18 00:18 650 mg ONCE ONE Administration Famotidine 20 mg in 12 mls @ 144 mls/hr 02/26/18 23:01 02/26/18 23:08 Pepcid 20 Mg/12 Ml Push IVPUSH 02/26/18 23:05 144 mls/hr ONCE ONE Administration Sodium Chloride 500 mls @ 500 mls/hr 02/26/18 23:29 02/26/18 23:39 Normal Saline - IV 02/27/18 00:28 500 mls/hr ASDIR STA Administration *DC/Admit/Observation/Transfer Diagnosis at time of Disposition: Abdominal pain Qualifiers: Abdominal location: epigastric Qualified Code(s): R10.13 - Epigastric pain - Discharge Dispostion Disposition: HOME Condition at time of disposition: Stable Decision to Admit order: No - Referrals Referrals: Oscar Mack MD [Primary Care Provider] - Kenrick Adams MD [Staff Physician] - - Patient Instructions Printed Discharge Instructions: DI for Abdominal Pain-Adult Additional Instructions: Please follow up with your doctor as soon as possible if symptoms don't improve. Follow up with the GI doctor you were referred to if pain continues. - Post Discharge Activity
--- NOTE | 2018-02-27 11:56 | EKG ---
Test Reason : Blood Pressure : / mmHG Vent. Rate : 079 BPM Atrial Rate : 079 BPM P-R Int : 130 ms QRS Dur : 070 ms QT Int : 374 ms P-R-T Axes : 068 018 033 degrees QTc Int : 428 ms NORMAL SINUS RHYTHM NORMAL ECG WHEN COMPARED WITH ECG OF 04-JAN-2016 08:27, NO SIGNIFICANT CHANGE WAS FOUND Confirmed by CHANDLER LONG MD ([id number]) on 02/27/2018 11:55:44 AM Referred By: Confirmed By:CHANDLER LONG MD
== END 2018-02-27 05:00 | disposition home or self-care (01) ==
LOC: JER 22:37
PROC: 3E0337Z Introduction of Electrolytic and Water Balance Substance into Peripheral Vein, Percutaneous Approach (ICD-10-PCS; principal; 2018-02-26)
PROC: 3E033GC Introduction of Other Therapeutic Substance into Peripheral Vein, Percutaneous Approach (ICD-10-PCS; 2018-02-26)
DX: R10.13 Epigastric pain (principal); K21.9 Gastro-esophageal reflux disease without esophagitis; Z86.2 Personal history of diseases of the blood and blood-forming organs and certain disorders involving the immune mechanism; Z88.8 Allergy status to other drugs, medicaments and biological substances
CPT/HCPCS: 36415; 71045-TC-FY; 80053; 82550; 83690; 84484; 85025; 85610; 93005; 93010; 99283-25

== ENCOUNTER 2019-10-05 11:12 | Emergency (ER) | payer OTHER ==
[2019-10-05 11:27] VITALS: BMI 32.0
[2019-10-05] MEDS ORDERED: FAMOTIDINE 20 MG/50 ML IVPB 20 MG in PREMIX 50 IVPB ONE (11:55)
[2019-10-05] MEDS ORDERED: SODIUM CHLORIDE 1,000 ML IV ONE ×3 (11:55→15:04)
[2019-10-05] MEDS ORDERED: morphine CARPU-JECT 2 MG/1 ML DISP.SYRIN IVPUSH ONE (11:55)
[2019-10-05] MEDS ORDERED: MORPHINE SULFATE 2 MG/ML VIAL ONE (12:00)
[2019-10-05] MEDS ORDERED: FAMOTIDINE 20 MG/50 ML IVPB 20 MG/50 ML MG IVPB ONE (12:00)
[2019-10-05] MEDS ORDERED: ONDANSETRON 4 MG/2 ML VIAL IVPUSH ONE (12:04)
--- NOTE | 2019-10-05 12:04 | PDOC ---
History of Present Illness - General Chief Complaint: Pain, Acute Stated Complaint: mouth pain, vomiting Time Seen by Provider: 10/05/19 11:54 History Source: Patient Exam Limitations: No Limitations - History of Present Illness Initial Comments: 10/05/19 11:56 54y F history of recent tongue surgery (10/02, had a mass excision at [facility]) presents with worsening pain. The pt notes that she had worsening pain/headache/tongue pain/ear pain on her R head since the surgery. She was given a prescription for naproxen and Tylenol 3 with instructions minimally helpful. Patient denies any fever, chills, bleeding, sob, alves, diaphoresis, wosrening of abd pain with exertion. Patient does endorse feeling nauseous and having mild epigastric pressure and pain. Patient states it is difficult to eat and drink due to the pain in her mouth, she has not taken her Tylenol 3 as she has had a empty stomach. ROS Constitutional - no reported Fever, Chills, HEENT: +R ear pain/tingue pain/headache, no reported vision changes, sore throat Respiratory: no reported cough, sob, hemoptysis Cardiac: no reported chest pain, palpitations, light headedness, leg swelling Abd/GI: +epigastric pain, +nausea no reported vomiting, blood per rectum, melena , diarrhea : no reported dysuria, frequency, discharge Musculskelatal - no reported back pain, joint swelling skin - no reported bruising, erythema, rash neurological: no reported headache, numbness, focal weakness, tingling, ataxia, hematologic: no reported easy bruising, easy bleeding Physicial Exam GENERAL: The patient is awake, alert, and fully oriented, Nontoxic - in no acute distress. HEAD: Normocephalic, atraumatic. EYES: extraocular movements intact, sclera anicteric, conjunctiva clear. ENT: R distal topngue with sutures, no signs of bleeding/discharge/erythema, + whitish coating over top of tongue. NECK: Normal range of motion, supple LUNGS: Breath sounds equal, clear to auscultation bilaterally. No wheezes, no rhonchi, no rales. HEART: Regular rate and rhythm, normal S1 and S2 without murmur, rub or gallop. ABDOMEN: Soft, nontender, No guarding, no rebound. No CVA tenderness EXTREMITIES: Normal range of motion, no edema. NEUROLOGICAL: No facial assymetry, Normal speech, PSYCH: Normal mood, normal affect. SKIN: Warm, Dry, normal turgor, Suspect the patient is being undertreated for her pain, we will give the patient fluids for hydration as well as morphine IV for pain control. Differential potential for the patient's epigastric pain includes possible pancreatitis, gastritis, nausea secondary to her pain Will give the patient Zofran for nausea no signs of bleeding or infection Past History - Past Medical History Allergies/Adverse Reactions: Allergies Allergy/AdvReac Type Severity Reaction Status Date / Time azithromycin [From Zithromax] Allergy Severe Verified 10/05/19 11:21 levofloxacin [From Levaquin] Allergy Severe Verified 10/05/19 11:21 Home Medications: Ambulatory Orders Acetaminophen W/ Codeine #3 [Tylenol # 3 -] 1 tab PO Q4H PRN 10/05/19 Anemia: Yes (H/O) Asthma: No Cancer: No Cardiac Disorders: No CVA: No COPD: No CHF: No Dementia: No Diabetes: No GI Disorders: Yes (GERD) Disorders: No HTN: No Hypercholesterolemia: No Liver Disease: No (HEPATIC CYST, PANCREATIC CYST) Seizures: No Thyroid Disease: No - Surgical History Abdominal Surgery: Yes Appendectomy: Yes Cardiac Surgery: No Cholecystectomy: Yes Lung Surgery: No Neurologic Surgery: No Orthopedic Surgery: No - Immunization History Immunization Up to Date: Yes - Psycho Social/Smoking Cessation Hx Smoking History: Never smoked Have you smoked in the past 12 months: No Number of Cigarettes Smoked Daily: 0 Cigars Per Day: 0 Hx Alcohol Use: No Drug/Substance Use Hx: No Substance Use Type: None Hx Substance Use Treatment: No *Physical Exam - Vital Signs Last Vital Signs Temp Pulse Resp BP Pulse Ox 97.8 F 81 18 128/81 96 10/05/19 11:21 10/05/19 11:21 10/05/19 11:21 10/05/19 11:21 10/05/19 11:21 ED Treatment Course - LABORATORY CBC & Chemistry Diagram: 10/05/19 12:00 10/05/19 12:00 Medical Decision Making - Medical Decision Making 10/05/19 13:22 The patient is feeling improved nausea has resolved epigastric pain had resolved. Patient still endorses a mild headache we will give the patient some Tylenol. Anticipate discharge after resolution of her headache 10/05/19 14:17 pt meenakshi gimproved headache improved will dc with outpatient management return precautions were dsicussed Discharge - Discharge Information Problems reviewed: Yes Clinical Impression/Diagnosis: Tongue pain, Epigastric pain Condition: Stable Disposition: HOME - Admission No - Follow up/Referral Referrals: Oscar Mack MD [Primary Care Provider] - - Patient Discharge Instructions Patient Printed Discharge Instructions: DI for Epigastric Pain Additional Instructions: Regrese al departamento de emergencias inmediatamente con CUALQUIER sntoma nuevo, persistente o que empeore. Michaela enzimas hepticas estaban mnimamente elevadas, merle un seguimiento con loo mdico de atencin primaria para que se vuelva a verificar Asegrese de umm loo vicodina segn lo prescrito. Neelam el dolor es menos intenso, puede intentar espaciar el medicamento ms all (es decir: cada 4 horas a cada 6 horas a cada 8 horas). Asegrate de mantenerte mylene hidratado. DEBE llamar y hacer un seguimiento con loo mdico maana para jay evaluacin adicional de michaela sntomas. Los resultados fueron discutidos con usted. Asegrese de que loo mdico revise los resultados de loo evaluacin de emergencia. Loo visita al Departamento de Emergencia no est completa sin un seguimiento con loo mdico. Return to the emergency department immediately with ANY new, persistent or worsening symptoms. Your liver enzymes were minimally elevated please follow-up with your primary care doctor to have this rechecked Make sure you are taking your vicodin as prescribed. As the pain is less severe , you may try spacing the medication further out (ie: every 4 hours to ever 6 hours to every 8 hours). Make sure you are staying well hydrated. You MUST call and follow up with your doctor tomorrow for further evaluation of your symptoms. Results were discussed with you. Please make sure your doctor reviews the results of your emergency evaluation. Your Emergency Department visit is not complete without a follow up with your doctor. Print Language: KYRGYZ - Post Discharge Activity
[2019-10-05] MEDS ORDERED: ONDANSETRON 4 MG/2 ML VIAL ONE (12:18)
[2019-10-05 12:38] LABS: BASO % 0.3 % (0-2.0); EOS % 0.6 % (0-4.5); HEMATOCRIT 40.1 % (32.4-45.2); HEMOGLOBIN 13.7 GM/dL (10.7-15.3); LYMPH % 28.4 % (8-40); MCH 30.7 pg (25.7-33.7); MCHC 34.2 g/dl (32.0-36.0); MEAN CELL VOLUME 89.8 fl (80-96); MEAN PLT VOLUME 9.4 fl (7.5-11.1); NEUT % 65.7 % (42.8-82.8); PLATELET COUNT 186 K/MM3 (134-434); RBC 4.46 M/mm3 (3.60-5.2); RDW 13.2 % (11.6-15.6); WHITE BLOOD COUNT 5.5 K/mm3 (4.0-10.0)
[2019-10-05 13:06] LABS: ALBUMIN 3.8 g/dl (3.4-5.0); BILIRUBIN,TOTAL 0.9 mg/dL (0.2-1); BLOOD UREA NITROGEN 11.8 mg/dL (7-18); CALCIUM 9.2 mg/dL (8.5-10.1); CREATININE 0.7 mg/dL (0.55-1.3); POTASSIUM 3.8 mmol/L (3.5-5.1); TOT PROT 6.7 g/dl (6.4-8.2)
[2019-10-05] MEDS ORDERED: ACETAMINOPHEN 1000 MG/100 ML VIAL (NON FORMULARY) IVPB ONE (13:19)
[2019-10-05] MEDS ORDERED: ACETAMINOPHEN INJECTION 100 ML IVPB ONE (13:27)
[2019-10-05] MEDS ORDERED: METOCLOPRAMIDE HCL INJECTION 10 MG/2 ML VIAL IVPUSH ONE (14:25)
[2019-10-05] MEDS ORDERED: METOCLOPRAMIDE HCL INJECTION 10 MG/2 ML VIAL ONE (14:32)
[2019-10-05] MEDS ORDERED: IBUPROFEN 400 MG TABLET (FP) PO ONE ×2 (15:04→15:12)
[2019-10-05 16:56] VITALS: BP 115/63; PULSE 75; TEMP 98.3
--- NOTE | 2019-10-06 10:16 | EKG ---
Test Reason : Blood Pressure : / mmHG Vent. Rate : 070 BPM Atrial Rate : 070 BPM P-R Int : 136 ms QRS Dur : 074 ms QT Int : 424 ms P-R-T Axes : 058 014 014 degrees QTc Int : 457 ms NORMAL SINUS RHYTHM NORMAL ECG WHEN COMPARED WITH ECG OF 26-FEB-2018 22:44, NO SIGNIFICANT CHANGE WAS FOUND Confirmed by Mino Chávez MD ([id number]) on 10/06/2019 10:16:23 AM Referred By: Confirmed By:Mino Chávez MD
== END 2019-10-05 16:56 | disposition home or self-care (01) ==
LOC: JER 11:12
PROC: 3E033GC Introduction of Other Therapeutic Substance into Peripheral Vein, Percutaneous Approach (ICD-10-PCS; principal; 2019-10-05)
PROC: 3E033GC Introduction of Other Therapeutic Substance into Peripheral Vein, Percutaneous Approach (ICD-10-PCS; 2019-10-05)
PROC: 3E033NZ Introduction of Analgesics, Hypnotics, Sedatives into Peripheral Vein, Percutaneous Approach (ICD-10-PCS; 2019-10-05)
DX: G89.18 Other acute postprocedural pain (principal); K14.6 Glossodynia; R10.13 Epigastric pain; R51 Headache; Z86.2 Personal history of diseases of the blood and blood-forming organs and certain disorders involving the immune mechanism; Z87.19 Personal history of other diseases of the digestive system; Z88.1 Allergy status to other antibiotic agents
CPT/HCPCS: 36415; 80053; 82550; 83690; 84484; 85025; 93005; 93010; 99284-25; J0131; J7030

== ENCOUNTER 2024-05-22 04:23 | Day surgery (SDC) | payer OTHER ==
[2024-05-21 11:40] VITALS: BMI 32.0
[2024-05-22] MEDS ORDERED: BUPIVACAINE HCL/PF 0.5% (5MG/ML) 10 ML VIAL ONE (11:44)
[2024-05-22] MEDS ORDERED: PROPOFOL 20 ML ONE (11:55)
[2024-05-22] MEDS ORDERED: ROCURONIUM BROMIDE 50 MG/5 ML SYRINGE ONE ×3 (11:56→18:18)
[2024-05-22] MEDS ORDERED: MIDAZOLAM HCL 2 MG/2 ML SINGLE DOSE VIAL ONE (11:56)
[2024-05-22] MEDS ORDERED: ceFAZolin SODIUM 1 GM VIAL ONE ×2 (12:14)
[2024-05-22] MEDS ORDERED: ONDANSETRON 4 MG/2 ML VIAL ONE ×3 (12:18→16:58)
[2024-05-22] MEDS ORDERED: KETOROLAC TROMETHAMINE 30 MG/1 ML VIAL ONE (12:18)
[2024-05-22] MEDS: ceFAZolin SODIUM 1 GM VIAL IVPB ONE (12:18)
[2024-05-22] MEDS ORDERED: DEXAMETHASONE SOD PHOSPHATE 4 MG/1 ML VIAL ONE ×2 (12:18)
[2024-05-22] MEDS: BUPIVACAINE HCL/PF 0.5% (5MG/ML) 10 ML VIAL IJ ONE (12:28)
[2024-05-22] MEDS ORDERED: HYDROmorphone HCl 2 MG/ML VIAL ONE (12:41)
[2024-05-22] MEDS ORDERED: SUGAMMADEX SODIUM 200 MG/2 ML VIAL ONE (13:17)
[2024-05-22] MEDS ORDERED: ACETAMINOPHEN INJECTION 100 ML IVPB ONE (13:19)
[2024-05-22] MEDS: LACTATED RINGERS SOLUTION 1,000 ML IV SCH (14:00)
[2024-05-22] MEDS: ONDANSETRON 4 MG/2 ML VIAL IVPUSH PRN (16:59)
[2024-05-22] MEDS ORDERED: HEPARIN NA (PORCINE) 5,000 UNITS/ML 1ML VIAL ONE (17:00)
[2024-05-22] MEDS ORDERED: oxyCODONE HCL 5 MG TABLET ONE (18:05)
[2024-05-22] MEDS: oxyCODONE HCL 5 MG TABLET PO PRN (18:10)
[2024-05-22 18:12] VITALS: RESP 20
[2024-05-22 18:29] VITALS: TEMP 97.1
[2024-05-22] MEDS ORDERED: SEVOFLURANE 250 ML BTL ONE (18:34)
[2024-05-22] MEDS: LACTATED RINGERS SOLUTION 1,000 ML IV ONE (18:50)
[2024-05-22 19:40] VITALS: BP 121/69; PULSE 85
== END 2024-05-22 19:30 | disposition home or self-care (01) ==
LOC: JASU-SURG 04:23
PROVIDERS: ATTEND Surgery
PROC: 0WUF4JZ Supplement Abdominal Wall with Synthetic Substitute, Percutaneous Endoscopic Approach (ICD-10-PCS; principal; 2024-05-22 11:00)
DX: K43.2 Incisional hernia without obstruction or gangrene (principal)
CPT/HCPCS: 94760; C1781; J0131; J1644